=== PATIENT | female | born 1955 | race Caucasian/White ===

== ENCOUNTER → 2017-01-11 | Outpatient (CLI) | payer MEDICARE ==
[~2017-01-11] MED LIST: BUPR150T13 PO; CITA40TA5 PO; HYDR12.53 PO; LAMO200T PO; OXYC-96 PO; TAPE50TA8 PO; THEO300T24 PO; TRAM50TA2 PO; TRAZ100T15 PO; VALA1000 PO; VALA500T PO
== END | disposition home or self-care (01) ==
LOC: CFH 11:22
PROVIDERS: ATTEND Licensed Practical Nurse
DX: Z13.820 Encounter for screening for osteoporosis (principal); M85.88 Other specified disorders of bone density and structure, other site; N95.8 Other specified menopausal and perimenopausal disorders; Z79.52 Long term (current) use of systemic steroids
CPT/HCPCS: 77080

== ENCOUNTER → 2018-12-19 | Outpatient (CLI) | payer MEDICARE ==
[~2018-12-19] MED LIST changes: +HYDR12.517 PO; -HYDR12.53 PO; -LAMO200T PO; +LAMO200T2 PO; +OXYC-293 PO; -OXYC-96 PO; -TAPE50TA8 PO; +TAPE50TA9 PO; -THEO300T24 PO; +THEO300T9 PO; +TRAZ-137 PO; -TRAZ100T15 PO
== END | disposition home or self-care (01) ==
LOC: CFH 12:21
PROVIDERS: ATTEND Nurse Practitioner
DX: Z12.31 Encounter for screening mammogram for malignant neoplasm of breast (principal)
CPT/HCPCS: 77067